=== PATIENT | male | born 1960 | race Hispanic/Latino ===

== ENCOUNTER → 2020-09-04 | Outpatient (CLI) | payer OTHER | LOC: MRI 07:18 | PROVIDERS: ATTEND Family Medicine | DX: S43.401D Unspecified sprain of right shoulder joint, subsequent encounter (principal) ==

== ENCOUNTER 2021-01-29 14:30 | Observation (INO) | payer OTHER ==
[~2021-01-29] VITALS: Ht 162.6 cm; Wt 83.9 kg
[2021-01-29] MEDS ORDERED: ASPIRIN 81 MG CHEW TAB PO ONE ×2 (14:45→17:00)
[2021-01-29 15:12] LABS: BASOPHILS % 0.6 % (0.0-1.0); EOSINOPHILS # (AUTO) 0.1 (0.0-0.4); HEMATOCRIT 35.4 % (38.2-49.6); HEMOGLOBIN 12.6 g/dL (14.0-18.0); LYMPHOCYTES # (AUTO) 1.7 (1.0-3.2); LYMPHOCYTES % 23.9 % (18.0-39.1); MEAN CORPUSCULAR HEMOGLOBIN 30.6 pg (28-32); MEAN CORPUSCULAR HGB CONC 35.6 g/dL (31-35); MEAN CORPUSCULAR VOLUME 85.9 fL (81-99); MONOCYTES # (AUTO) 0.5 (0.2-0.8); MONOCYTES % 6.3 % (4.4-11.3); NEUTROPHILS # (AUTO) 4.9 (2.1-6.9); NEUTROPHILS % 68.1 % (38.7-80.0); PLATELET COUNT 199 x10e3/uL (140-360); RED BLOOD COUNT 4.12 x10e6/uL (4.3-5.7); RED CELL DISTRIBUTION WIDTH 11.8 % (11.7-14.4)
[2021-01-29 15:38] LABS: ALANINE AMINOTRANSFERASE 19 IU/L (0-55); ALBUMIN 4.3 g/dL (3.5-5.0); ALBUMIN/GLOBULIN RATIO 1.5 (0.8-2.0); ALKALINE PHOSPHATASE 71 IU/L (40-150); BLOOD UREA NITROGEN 20 mg/dL (7-26); BUN/CREATININE RATIO 21 (6-25); CALCIUM 8.5 mg/dL (8.4-10.2); CARBON DIOXIDE 25 mmol/L (22-29); CHLORIDE 106 mmol/L (98-107); CREATINE KINASE 196 IU/L (30-200); CREATININE, SERUM 0.97 mg/dL (0.72-1.25); EST GLOMERULAR FILTRATION RATE > 60 ML/MIN (60-); GLUCOSE 97 mg/dL (74-118); SODIUM 140 mmol/L (136-145)
[2021-01-29] MEDS ORDERED: SODIUM CHLORIDE 0.9% 50ML 50 ML ONE (16:11)
[2021-01-29] MEDS ORDERED: IOPAMIDOL 370 MG/ML 200 ML INFUS..BTL INJ ONE (16:11)
[2021-01-29] MEDS ORDERED: MORPHINE SULFATE INJ 2 MG/ML SYR IV PRN (17:00)
[2021-01-29] MEDS ORDERED: ONDANSETRON HCL INJ 2MG/ML 2ML 2 MG/ML VIAL IV PRN (17:00)
[2021-01-29] MEDS ORDERED: MORPHINE SULFATE INJ 4 MG/ML INJ 1ML IV PRN (17:30)
[2021-01-29 17:57] VITALS: BP 186/87
[2021-01-29] MEDS ORDERED: LISINOPRIL10 MG PO (18:04)
[2021-01-29 18:05] VITALS: BP 186/87
[2021-01-29] MEDS: LISINOPRIL 20 MG TAB PO SCH (18:23)
[2021-01-29] MEDS: METOPROLOL TARTRATE 25 MG TAB PO SCH (18:25)
[2021-01-29 20:00] VITALS: BP 139/72
[2021-01-29 22:35] LABS: CREATINE KINASE MB 1.7 ng/mL (0-5.0)
[2021-01-30] VITALS: BP 137/73
[2021-01-30 04:00] VITALS: BP 150/72
[2021-01-30 04:54] LABS: BASOPHILS % 0.6 % (0.0-1.0); EOSINOPHILS # (AUTO) 0.1 (0.0-0.4); HEMATOCRIT 34.7 % (38.2-49.6); HEMOGLOBIN 12.4 g/dL (14.0-18.0); LYMPHOCYTES # (AUTO) 1.5 (1.0-3.2); LYMPHOCYTES % 27.5 % (18.0-39.1); MEAN CORPUSCULAR HEMOGLOBIN 30.6 pg (28-32); MEAN CORPUSCULAR HGB CONC 35.7 g/dL (31-35); MEAN CORPUSCULAR VOLUME 85.7 fL (81-99); MONOCYTES # (AUTO) 0.4 (0.2-0.8); MONOCYTES % 7.9 % (4.4-11.3); NEUTROPHILS # (AUTO) 3.3 (2.1-6.9); NEUTROPHILS % 61.8 % (38.7-80.0); PLATELET COUNT 176 x10e3/uL (140-360); RED BLOOD COUNT 4.05 x10e6/uL (4.3-5.7); RED CELL DISTRIBUTION WIDTH 11.7 % (11.7-14.4)
[2021-01-30 05:39] LABS: CREATINE KINASE MB 1.4 ng/mL (0-5.0)
[2021-01-30 07:09] LABS: ALANINE AMINOTRANSFERASE 17 IU/L (0-55); ALBUMIN/GLOBULIN RATIO 1.4 (0.8-2.0); ALKALINE PHOSPHATASE 65 IU/L (40-150); ANION GAP 12.2 mmol/L (8-16); BLOOD UREA NITROGEN 18 mg/dL (7-26); BUN/CREATININE RATIO 21 (6-25); CALCIUM 8.5 mg/dL (8.4-10.2); CARBON DIOXIDE 23 mmol/L (22-29); CHLORIDE 110 mmol/L (98-107); CREATININE, SERUM 0.84 mg/dL (0.72-1.25); EST GLOMERULAR FILTRATION RATE > 60 ML/MIN (60-); GLUCOSE 85 mg/dL (74-118); POTASSIUM 4.2 mmol/L (3.5-5.1); SODIUM 141 mmol/L (136-145)
[2021-01-30 08:00] VITALS: BP 138/77
[2021-01-30] MEDS: METOPROLOL TARTRATE 25 MG TAB PO SCH (09:01)
[2021-01-30] MEDS: LISINOPRIL 20 MG TAB PO SCH (09:01)
[2021-01-30 09:09] VITALS: BP 138/77
[2021-01-30] MEDS ORDERED: ZOLPIDEM TARTRATE 5 MG TAB PO PRN (11:15)
[2021-01-30] MEDS ORDERED: DOCUSATE SODIUM 100 MG CAP PO PRN (11:15)
[2021-01-30] MEDS ORDERED: ACETAMINOPHEN 325 MG TAB PO PRN (11:15)
[2021-01-30 12:00] VITALS: BP 161/77
[2021-01-30] MEDS ORDERED: FAMOTIDINE20 MG PO (12:30)
[2021-01-30] MEDS ORDERED: ASPIRIN325 MG PO (12:30)
[2021-01-30] MEDS ORDERED: LIPITOR20 MG PO (12:30)
[2021-01-30] MEDS ORDERED: LOPRESSOR25 MG PO (12:30)
[2021-01-30 13:05] LABS: CHOL/HDL RATIO 2.6 (3.9-4.7)
[2021-01-30] MEDS ORDERED: FAMOTIDINE 20 MG TAB PO SCH (16:30)
[2021-01-30] MEDS ORDERED: ENOXAPARIN SOD INJ 40 MG/0.4 ML SYR SC SCH (17:00)
[2021-01-30] MEDS ORDERED: ATORVASTATIN 20 MG TAB PO SCH (21:00)
[2021-01-31] MEDS ORDERED: ASPIRIN 325 MG TAB PO SCH (09:00)
== END 2021-01-30 14:06 | disposition home or self-care (01) ==
LOC: ER 14:42 → ERHOLD 17:08 → IMCU 17:49
PROVIDERS: ADMIT Internal Medicine; ATTEND Internal Medicine
DX: R07.89 Other chest pain (principal); I69.351 Hemiplegia and hemiparesis following cerebral infarction affecting right dominant side; I10 Essential (primary) hypertension; E78.5 Hyperlipidemia, unspecified; E11.9 Type 2 diabetes mellitus without complications; E66.9 Obesity, unspecified; Z68.31 Body mass index [BMI] 31.0-31.9, adult; Z20.822 Contact with and (suspected) exposure to COVID-19
CPT/HCPCS: 36415 ×2; 71045; 71260; 80053 ×2; 80061; 82550 ×2; 82553 ×2; 82948 ×2; 83880; 84484 ×2; 85025 ×2; 85379; 93005; 93306; 93880; 99284; G0378 ×2; Q9967; U0002